=== PATIENT | female | born 1990 | race Caucasian/White ===

== ENCOUNTER → 2016-07-21 | Day surgery (SDC) | payer OTHER ==
[~2016-07-21] MED LIST: ALBUTEROL17 GM INH; AMOXICILLIN PO; AUGMENTIN PO; BACITRACIN OP3.5 GM OD; BACTRIM DS TABL1 TAB PO; BIRTH CONTROL PILL PO; CIPRO PO; CLARITIN10 MG PO; DOXYCYCLINE PO; FIORICET 50-321 EACH PO; FLAGYL PO; FLONASE16 GM; IBUPROFEN800 MG PO; LORTAB 10-5001 EACH PO; NEURONTIN300 MG; NITROFURANTOIN100 M3 PO; NO MEDICATIONS; PEN-VEE K PO; PREDNISONE PO; PRENATAL1 TA1 PO; PYRIDIUM PO; RISPERDAL4 M1; TETRACYCLINE PO; TRAZODONE; TYLENOL #3 PO; VICODIN 5/500 T1 TAB PO; VICODIN PO; YASMIN 28 TABLE1 TAB PO; ZITHROMAX PO; ZOVIRAX200 M1 PO
--- NOTE | ~2016-07-21 | OR ---
Unit #: [id number] #: [id number] Patient: GLORIA LOVE [id number] [address] [place], [place] [address] [id number] O MR#: [id number] NAME: GLORIA LOVE ROOM: Date of Procedure: 07/21/2016 Admission Date: 07/21/2016 Surgeon: Pablo Oconnor M.D. : 1990 Attending Physician: Pablo Oconnor M.D. OPERATIVE REPORT PROCEDURES PERFORMED Colonoscopy to splenic flexure. Esophagogastroduodenoscopy with biopsy. PREOPERATIVE DIAGNOSES Melena, chronic constipation, chronic abdominal pain. POSTOPERATIVE DIAGNOSES Antral erosions, poor colon prep, internal hemorrhoids. ANESTHESIA Monitored anesthesia care. DESCRIPTION OF PROCEDURE After adequate explanation of the risks, benefits and alternatives of the procedure, an informed consent was obtained from the patient. The patient was brought to the endoscopy suite. Intravenous monitored sedation was rendered by [employer]. With the patient lying in the left lateral position, video gastroscope was passed through oropharynx to the esophagus with findings of refluxing esophagitis. The scope was then passed through GE junction into stomach with findings of multiple gastric antral erosions and biopsy obtained. No pyloric deformity noted. The scope was passed via pylorus into descending duodenum. The scope was then completely withdrawn. The patient was repositioned. Video colonoscope was advanced to rectum and advanced to splenic flexure. There was extensive amount of retained stool, which precluded further passage of scope proximally. Scope was then withdrawn with findings of retained stool throughout transverse, descending, and sigmoid colon. There were also extensive amount of retained stools in the rectum. Retroflexed view showed otherwise internal hemorrhoids. The exam was somewhat limited due to poor colon prep. ASSESSMENT AND PLAN 1. The patient is a 25-year-old female with chronic constipation and abdominal pain. Esophagogastroduodenoscopy shows evidence of gastric antral erosions. She will be placed on proton pump inhibitors and see the response to therapy. 2. Given the history of chronic constipation and melena, colonoscopy, however, could not be completely performed due to poor prep. In view of this, a followup repeat colonoscopy at a later time will be recommended. In the meanwhile, the patient will be started on stool softener and Linzess and see the response to therapy. Unit #: [id number] #: [id number] Patient: GLORIA LOVE Dictated by... Edy Sampson/ulises TD: 07/22/2016 06:06 JOB #: [id number] OPERATIVE REPORT Page 1 of 1 X Pablo Oconnor MD X PROCEDURE OPERATIVE NOTE
== END | disposition home or self-care (01) ==
LOC: COPS 13:09
DX: K25.9 Gastric ulcer, unspecified as acute or chronic, without hemorrhage or perforation (principal); K29.50 Unspecified chronic gastritis without bleeding; K64.8 Other hemorrhoids; K92.1 Melena; K59.09 Other constipation; F17.200 Nicotine dependence, unspecified, uncomplicated
CPT/HCPCS: 88305; 88312; J2250